=== PATIENT | female | born 1960 | race Caucasian/White ===

== ENCOUNTER → 2016-09-19 | Day surgery (SDC) | payer OTHER ==
--- NOTE | 2016-09-18 21:36 | HHI.HP ---
HPI Chief Complaint Uterine prolapse, large fibroids, pelvic pain Travel History International Travel<30 Days: No Contact w/Intl Traveler<30Days: No Known Affected Area: No History of Present Illness HPI Patient is a 56 year old female who has requested permanent surgical treatment due to worsening pelvic pain. She has been enduring the pain of a uterine prolapse due to large fibroids. She has requested to have her ovaries removed as well. Para: 0 : 0 Miscarriage: 0 : 0 History Past Medical History Narrative Medical Diabetes Type 2 -- oral medication Hypothyroidism Hypercholesterolemia Obstetric History Obstetric History Nulligravida Past Surgical History Narrative Surgical Hand surgery Family History Narrative Family History Sister -- breast cancer Sister -- pharyngeal cancer Social History Alcohol Use: No Tobacco Use: No Substance Abuse: No Allergies-Medications (Allergen,Severity, Reaction): Coded Allergies: No Known Allergies (Unverified , 09/18/16) Narrative Medication Lovastatin 10 mg PO QD Levothyroxine 112 mcg PO QD Metformin ER 500 mg QAM Review of Systems General / Constitutional: No: Fever, Weight Gain, Chills, Other Eyes: No: Diploplia, Blurred Vision, Visual changes, Pain, Photophobia HENT: No: Headaches, Vertigo, Lightheadedness Cardiovascular: No: Irregular Rhythm, Chest Pain or Discomfort, Palpitations, Tachycardia, Syncope, Varicosities, Edema, Cyanosis Respiratory: No: Cough, Short of Breath, Other Gastrointestinal: No: Nausea, Vomiting, Diarrhea Genitourinary: Pelvic Pain, Other (uterine prolapse), No: Decreased Urinary Output, Oliguria Musculoskeletal: No: Limited ROM, Weakness, Cramping, Edema, Pain Skin: No Rash, No Itching, No Dryness, No Lumps, No Change in Pigmentation, No Change in Nails, No Alopecia, No Lesions Neurologic: No: Weakness, Dizziness, Syncope, Focal Abnormalities, Coordination Problem, Headache, Slurred Speech, Seizures Psychiatric: No: Depression, Suicidal Ideations, Homicidal Ideation Endocrine: No: Heat Intolerance, Cold Intolerance, Polydipsia, Polyuria, Other Physical Exam Narrative GENERAL: Well-nourished, well-developed patient. SKIN: Warm and dry. HEAD: Normocephalic and atraumatic. EYES: No scleral icterus. No injection or drainage. ENT: No nasal drainage noted. Mucous membranes pink. Airway patent. NECK: Supple, trachea midline. No JVD. CARDIOVASCULAR: Regular rate and rhythm without murmurs, gallops, or rubs. RESPIRATORY: Breath sounds equal bilaterally. No accessory muscle use. BREASTS: Bilateral exam showed no masses , no retractions, no nipple discharge. ABDOMEN/GI: Abdomen soft, non-tender, bowel sounds present, no rebound, no guarding GENITOURINARY: External Genitalia: intact and normal in appearance Uterus: enlarged, prolapsed to level of introitus EXTREMITIES: No cyanosis or edema. BACK: Nontender without obvious deformity. No CVA tenderness. NEUROLOGICAL: Awake and alert. Motor and sensory grossly within normal limits. Five out of 5 muscle strength in all muscle groups. Normal speech. Data Data Vital Signs Reviewed: Yes Assessment/Plan Problem List: (1) Complete uterine prolapse (2) Fibroids, intramural (3) Acute pelvic pain, female Assessment and Plan 1. admit for laparoscopic assisted vaginal hysterectomy, bilateral salpingo- oophorectomy and McCalls culdoplasty 2. discussed the R/B/A of the procedure: bleeding, infection, damage to internal organs (bowel, bladder, nerves, ureters, vessels) as well damage to vaginal negrete 3, discussed the R/B/A of leaving the ovaries in situ vs. surgical menopause; patient wishes to have ovaries removed 4. informed consent was obtained after patient's questions were answered; she verbalized understanding Amanda Barber MD September 18, 2016 21:36
[~2016-09-19] MED LIST: BUPIVACAINE/EPINEPHRINE 0.25% 50 ML VIAL ONE; ESTROGENS CONJUGATED VAG CREA 15 APPL/30 GM TUBE ONE; FUROSEMIDE 20 MG/2 ML VIAL ONE; KETOROLAC TROMETHAMINE 30 MG/ML (IVP) VIAL IV PUSH ONE; LACTATED RINGER'S 1,000 ML BAG IV ONE; LACTATED RINGER'S 1000 ML INJ 1,000 ML ONE; MEPERIDINE HCL 25 MG/ML VIAL ONE; METHYLENE BLUE 10 MG/ML VIAL OTHER ONE; MIDAZOLAM HCL 2 MG/2 ML VIAL ONE; MORPHINE SULFATE 4 MG/ML INJ ONE; ONDANSETRON HCL 4 MG/2 ML VIAL IV PUSH ONE; ONDANSETRON HCL 4 MG/2 ML VIAL ONE; PROPOFOL 200 MG/20 ML AMP IV ONE; SCOPOLAMINE 1.5 MG PATCH ONE; SODIUM CHLORIDE 0.9% 20 ML VIAL ONE; VASOPRESSIN INJ 20 UNITS/ML VIAL ONE; ceFAZolin 2 GM PREMIX 50 ML ONE; oxyCODONE/ACETAMINOPHEN 5 MG/325 MG TAB ONE
--- NOTE | 2016-09-19 11:48 | PD.OP ---
Operative Report Date of Surgery: September 19, 2016 Preoperative Diagnosis: (1) Complete uterine prolapse (2) Fibroids, intramural (3) Acute pelvic pain, female Postoperative Diagnosis: (1) Complete uterine prolapse (2) Fibroids, intramural (3) Acute pelvic pain, female (4) Adhesion of abdominal wall (5) Peritoneal adhesions (postoperative) (postinfection) Procedure: 1. extensive lysis of abdominal adhesions 2. laparoscopic assisted vaginal hysterectomy 3. Villarreal culdoplasty Anesthesia: General Surgeon: Amanda Barber Sailing Instructor(s): Staff Operation and Findings: IVF: 1700 ml LR + IV antibiotics given prior to surgery + Methylene blue given during surgery UO: 700 ml EBL: 150 ml Findings 1. EXTENSIVE abdominal adhesions involving anterior abdominal wall, omentum and bowel 2. both ovaries and tubes embedded in the pelvic side negrete under thick layers of adhesions 3. large fibroid Specimens: cervix and uterus Complications: none Condition: stable Disposition: PACU Descriptions of the procedure: I discussed the risks, benefits and alternatives of the procedure with the patient. Informed consent was obtained after questions were answered. She was then taken to the operating room with her IV running. She was placed in the supine position and was given general anesthesia without difficulties or complications. She was then placed in the dorsal lithotomy position and was prepped and draped in the usual sterile fashion. Attention was first turned to the patient's genital area. A bivalved speculum was introduced inside the patient's vagina. The anterior aspect of the cervix was grasped with a single tooth tenaculum for manipulation. The cervix was carefully dilated and a uterine manipulator was carefully introduced inside her uterus. The rest of the instruments were removed from the patient's vagina and a sterile blue towel was used to cover the perineum. The surgeon changed gloves and attention was then turned to the patient's abdomen. A vertical umbilical incision was made with the scalpel. A 5 mm trocar was introduced inside the patient's abdomen under direct visualization. A pneumo -peritoneum was created with CO2 gas. A wall of thick adhesions involving the omentum and the bowel was encountered. Three 5 mm incisions were made under the umbilicus in the mid, left and right side. Extensive lysis of adhesions was needed in order to visualize the pelvis and proceed with the surgery. Next, three 5 mm trocars were introduced inside the patient's abdomen under direct visualization in the lower right, mid, and left abdomen. A survey of the patient's abdomen revealed normal anatomy with numerous areas of adhesions. A survey of the patient's pelvis revealed the findings noted above. The round ligaments and utero-ovarian ligaments were carefully and serially grasped, electrocauterized and cut with the Thunderbeat scalpel. Excellent hemostasis was noted. The tissues along the uterus on both sides were serially grasped, electrocauterized and transected with the Thunderbeat scalpel. The ureters were noted to be away from the surgical site. The uterine vessels were skeletonized, electrocauterized and transected with the Harmonic scalpel. Good hemostasis was noted. Next, the bladder flap was created and the bladder was dissected off the lower uterine segment. Excellent hemostasis was noted. At this point, attention was again turned to the patient's perineal area. The uterine manipulator was removed. The Bovie was used to circumferentially cut the vaginal tissues at the cervico-vaginal junction after Pitressin had been injected. The anterior cul de sac was entered without difficulties. The posterior cul de sac was also entered without difficulties. A retractor was introduced inside the posterior cul de sac. A retractor was placed inside the anterior cul de sac. Curved Troy clamps were used to clamp the cardinal ligaments. These were transected with Carr scissors and stitched with 0-Vicryl. Good hemostasis was noted. The rest of the tissues along the lower uterine segment were serially clamped, transected with Carr scissors and stitched with 0 -Vicryl. Good hemostasis was noted at each pedicle. The uterus was removed and sent to pathology. A sponge stick was used to check each pedicle for hemostasis. All the instruments were removed from the patient's pelvis. A Villarreal culdoplasty was carefully done. The peritoneum was reapproximated with a purse string stitch of 0-Vicryl. The pedicles were reapproximated and secured in order to get the vaginal cuff higher in the pelvis. The vaginal tissues were reapproximated with running, locked stitches of 0-Vicryl in a vertical fashion. A vaginal pack with Premarin cream was placed in the patient' s vagina. The surgeon changed gloves and attention was turned again to the patient's abdomen. The pneumoperitoneum was recreated. The surgical sites were noted to be hemostatic. Copious irrigation was done. Methylene blue was given at the beginning of the surgical procedure. The ureters were identified and found to be away from the surgical sites. There was no evidence of injury or blockage of the ureters or bladder. Interseed was placed over the surgical site. All of the instruments were removed from the patient's abdomen. The ports were also removed under direct visualization. Excellent hemostasis was noted. The CO2 gas was carefully expressed out of the patient's abdomen. The skin incisions were injected with 0.5 % Marcaine and were reapproximated with subcutaneous stitches of 4-0 Vicryl. Mastisol and steri strips were placed over the incisions. The patient tolerated the procedure well. She was successfully extubated and transferred to PACU in stable condition. Note: I discussed surgical procedures and surgical findings with patient's . His questions were answered. He verbalized understanding. Amanda Barber MD September 19, 2016 11:48 Care was taken to remove all of the small pieces of tissue left in the abdomen and pelvis. Copious irrigation was done. All surgical sites were noted to be hemostatic. A piece of interceed was placed over the cervix. All instruments were removed from patient's abdomen. The trocars were removed under direct visualization and the sites were noted to be hemostatic. The CO2 gas was carefully expressed out of the patient's abdomen. The fascia under the 10 mm incisions was reapproximated with a figure eight stitch of 0-Vicryl. The subcutaneous tissues were injected with 0.5 % Marcaine. The skin incisions were reapproximated with subcutaneous stitches using 4-0 Vicryl. Mastisol and steri strips were placed over the incisions. The patient tolerated the procedure well. She was successfully extubated and transferred to PACU in stable condition. NOTE: I discussed the surgical findings and surgical procedures with patient's daughter. Her questions were answered. She verbalized understanding and agreement to the surgical treatment given. Amanda Barber MD September 19, 2016 11:48
== END | disposition home or self-care (01) ==
LOC: ESDC 06:22
PROVIDERS: ATTEND Obstetrics & Gynecology
DX: N81.4 Uterovaginal prolapse, unspecified (principal); D25.1 Intramural leiomyoma of uterus; R10.2 Pelvic and perineal pain; K66.0 Peritoneal adhesions (postprocedural) (postinfection); E11.9 Type 2 diabetes mellitus without complications; E03.9 Hypothyroidism, unspecified; E78.00 Pure hypercholesterolemia, unspecified; Z79.84 Long term (current) use of oral hypoglycemic drugs
CPT/HCPCS: 00840; 00942; 57268; 58550; 88307; C1765; J0690; J1885; J1940; J2175; J2250; J2270; J2405; J3010; J7120; 88305